=== PATIENT | male | born 1975 | race Caucasian/White ===

== ENCOUNTER 2017-04-09 09:33 | Emergency (ER) | payer MEDICAID, OTHER ==
[~2017-04-09] VITALS: Ht 172.7 cm; Wt 61.4 kg
[~2017-04-09 09:33] MED LIST: PYRI50 PO
[2017-04-09] MEDS ORDERED: METO25 PO (09:38)
[2017-04-09] MEDS ORDERED: CLON1 PO (09:38)
[2017-04-09] MEDS ORDERED: CITA20TA9 PO (09:38)
[2017-04-09] MEDS ORDERED: MULT-1192 PO (09:38)
[2017-04-09 11:41] VITALS: BP 136/80
== END 2017-04-09 11:42 | disposition home or self-care (01) ==
LOC: EMS 09:34
DX: J06.9 Acute upper respiratory infection, unspecified (principal); F32.9 Major depressive disorder, single episode, unspecified; F41.9 Anxiety disorder, unspecified; Z79.899 Other long term (current) drug therapy
CPT/HCPCS: 99283